=== PATIENT | female | born 1990 | race Caucasian/White ===

== ENCOUNTER 2018-09-09 19:00 | Inpatient (IN) | payer OTHER ==
[2018-09-09 19:30] VITALS: BMI 26.4
[2018-09-09 19:51] LABS: BASO % 0.6 % (0-2.0); EOS % 2.6 % (0-4.5); HEMATOCRIT 38.3 % (32.4-45.2); HEMOGLOBIN 12.3 GM/dL (10.7-15.3); LYMPH % 30.1 % (8-40); MCHC 32.2 g/dl (32.0-36.0); MEAN CELL VOLUME 71.4 fl (80-96); MEAN PLT VOLUME 8.3 fl (7.5-11.1); MONO % 5.1 % (3.8-10.2); NEUT % 61.6 % (42.8-82.8); PLATELET COUNT 312 K/MM3 (134-434); RBC 5.36 M/mm3 (3.60-5.2); RDW 15.2 % (11.6-15.6); WHITE BLOOD COUNT 6.9 K/mm3 (4.0-10.0)
[2018-09-09 20:18] LABS: URINE APPEARANCE CLEAR; URINE BILIRUBIN NEGATIVE (<2.0 mg/dL); URINE COLOR STRAW; URINE GLUCOSE (UA) NEGATIVE (NEGATIVE); URINE KETONE 1+ (NEGATIVE); URINE LEUK ESTERASE 1+ (NEGATIVE); URINE NITRITE NEGATIVE (NEGATIVE); URINE PROTEIN NEGATIVE (NEGATIVE); URINE UROBILINOGEN NEGATIVE mg/dL (0.2-1.0)
[2018-09-09 20:20] LABS: EPI CELLS RARE /HPF (FEW); URINE MUCUS RARE
[2018-09-09 20:26] LABS: PROTHROMBIN TIME (PATIENT) 11.8 SEC (9.7-13.0)
[2018-09-09 20:30] LABS: ALBUMIN 4.6 g/dl (3.4-5.0); ALK PHOS 66 U/L (45-117); ANION GAP 8 MMOL/L (8-16); BILIRUBIN,TOTAL 0.2 mg/dL (0.2-1); BLOOD UREA NITROGEN 14 mg/dL (7-18); CALCIUM 9.1 mg/dL (8.5-10.1); CHLORIDE 106 mmol/L (98-107); CO2 24 mmol/L (21-32); CREATININE 0.5 mg/dL (0.55-1.3); GLUCOSE,RANDOM 82 mg/dL (74-106); POTASSIUM 4.2 mmol/L (3.5-5.1); SGOT/AST 12 U/L (15-37); SGPT/ALT 23 U/L (13-61); SODIUM 137 mmol/L (136-145); TOT PROT 8.2 g/dl (6.4-8.2)
--- NOTE | 2018-09-09 21:02 | PDOC ---
History of Present Illness - General History Source: Patient Exam Limitations: No Limitations - History of Present Illness Initial Comments: 09/09/18 21:10 Patient is a 28 year old female with a past medical history of childbirth and familial HLD who presents to the emergency department for numbness to lower extremities and ataxia. Patient reports a 15 day history of worsening numbness to feet, which over time, ascended above her knees. She reports multiple falls since the start of her symptoms. Patient believed her symptoms were a result of the flexeril she is taking secondary to her back pain. She states she was sent to the ED for further evaluation by her neurologist Dr. Alas. The patient denies chest pain, shortness of breath, headache, and dizziness. Denies fevers, chills, nausea, and vomiting. Allergies: No known allergies. Social History: No reported alcohol, cigarette, or drug use. Surgical History: None PCP: Dr. Preston Neurologist: Dr. Alas <Alicia Roy - Last Filed: 09/09/18 21:18> <Clarisa Caraballo - Last Filed: 09/09/18 21:38> - General Chief Complaint: Head/Neck problem Stated Complaint: PADMINI FEET NUMBNESS,ATAXIA Time Seen by Provider: 09/09/18 19:53 Past History <Alicia Roy - Last Filed: 09/09/18 21:18> - Past Medical History COPD: No - Suicide/Smoking/Psychosocial Hx Smoking History: Never smoked <Clarisa Caraballo - Last Filed: 09/09/18 21:38> - Past Medical History Allergies/Adverse Reactions: Allergies Allergy/AdvReac Type Severity Reaction Status Date / Time No Known Allergies Allergy Unverified 09/09/18 19:27 Review of Systems - Review of Systems Able to Perform ROS?: Yes Comments:: CONSTITUTIONAL: Absent: fever, chills, diaphoresis, generalized weakness, malaise, loss of appetite HEENT: Absent: rhinorrhea, nasal congestion, throat pain, throat swelling, difficulty swallowing, mouth swelling, ear pain, eye pain, visual Changes CARDIOVASCULAR: Absent: chest pain, syncope, palpitations, irregular heart rate, lightheadedness , peripheral edema RESPIRATORY: Absent: cough, shortness of breath, dyspnea with exertion, orthopnea, wheezing, stridor, hemoptysis GASTROINTESTINAL: Absent: abdominal pain, abdominal distension, nausea, vomiting, diarrhea, constipation, melena, hematochezia GENITOURINARY: Absent: dysuria, frequency, urgency, hesitancy, hematuria, flank pain, genital pain MUSCULOSKELETAL: (+)back pain. Absent: myalgia, arthralgia, joint swelling SKIN: Absent: rash, itching, pallor HEMATOLOGIC/IMMUNOLOGIC: Absent: easy bleeding, easy bruising, lymphadenopathy, frequent infections ENDOCRINE: Absent: unexplained weight gain, unexplained weight loss, heat intolerance, cold intolerance NEUROLOGIC: (+)ataxia. (+)unsteady gait. (+)numbness to lower extremities. Absent: headache, focal weakness or paresthesias, dizziness, seizure, mental status changes, bladder or bowel incontinence PSYCHIATRIC: Absent: anxiety, depression, suicidal or homicidal ideation, hallucinations. <Alicia Roy - Last Filed: 09/09/18 21:18> *Physical Exam - Vital Signs Last Vital Signs Temp Pulse Resp BP Pulse Ox 98.6 F 82 18 144/81 100 09/09/18 19:27 09/09/18 19:27 09/09/18 19:27 09/09/18 19:27 09/09/18 19:27 - Physical Exam Comments: wnwd 28 y/o female in no acute distress head ncat neck supple. No jvd, no bruits Heart RRR. No gallops, murmurs, or rubs. lungs clear to auscultation bilaterally abd soft,nontender. No CVA tenderness. +Lower extremities pins and needles tingling numbness on feet up to side, ascending weakness from her toes to mid thighs bilaterally. Has reflexes. Upper motor strength, totally fine, no facial droop. ext no e/c/c, MAEx4 skin warm and dry,no rashes neuro A&Ox3. +Foot drop with gait. Ataxia. <Alicia Roy - Last Filed: 09/09/18 21:18> - Vital Signs Last Vital Signs Temp Pulse Resp BP Pulse Ox 98.6 F 82 18 144/81 100 09/09/18 19:27 09/09/18 19:27 09/09/18 19:27 09/09/18 19:27 09/09/18 19:27 <Clarisa Caraballo - Last Filed: 09/09/18 21:38> ED Treatment Course - LABORATORY CBC & Chemistry Diagram: 09/09/18 19:46 09/09/18 19:46 - ADDITIONAL ORDERS Additional order review: Laboratory Results 09/09/18 09/09/18 09/09/18 20:05 19:57 19:46 PT with INR INR Sodium 137 Potassium 4.2 Chloride 106 Carbon Dioxide 24 Anion Gap 8 BUN 14 Creatinine 0.5 L Creat Clearance w eGFR > 60 Random Glucose 82 Calcium 9.1 Total Bilirubin 0.2 AST 12 L ALT 23 Alkaline Phosphatase 66 Total Protein 8.2 Albumin 4.6 Serum , Qual Negative Urine Color Straw Urine Appearance Clear Urine pH 5.0 Ur Specific [place] 1.017 Urine Protein Negative Urine Glucose (UA) Negative Urine Ketones 1+ H Urine Blood Negative Urine Nitrite Negative Urine Bilirubin Negative Urine Urobilinogen Negative Ur Leukocyte Esterase 1+ H Urine WBC (Auto) 4 Urine RBC (Auto) 1 Ur Epithelial Cells Rare Urine Mucus Rare 09/09/18 19:46 PT with INR 11.80 INR 1.00 Sodium Potassium Chloride Carbon Dioxide Anion Gap BUN Creatinine Creat Clearance w eGFR Random Glucose Calcium Total Bilirubin AST ALT Alkaline Phosphatase Total Protein Albumin Serum , Qual Urine Color Urine Appearance Urine pH Ur Specific [place] Urine Protein Urine Glucose (UA) Urine Ketones Urine Blood Urine Nitrite Urine Bilirubin Urine Urobilinogen Ur Leukocyte Esterase Urine WBC (Auto) Urine RBC (Auto) Ur Epithelial Cells Urine Mucus 09/09/18 19:46 RBC 5.36 H MCV 71.4 L MCHC 32.2 RDW 15.2 MPV 8.3 Neutrophils % 61.6 Lymphocytes % 30.1 Monocytes % 5.1 Eosinophils % 2.6 Basophils % 0.6 <Alicia Roy - Last Filed: 09/09/18 21:18> - LABORATORY CBC & Chemistry Diagram: 09/09/18 19:46 09/09/18 19:46 - ADDITIONAL ORDERS Additional order review: Laboratory Results 09/09/18 09/09/18 09/09/18 20:05 19:57 19:46 PT with INR INR Sodium 137 Potassium 4.2 Chloride 106 Carbon Dioxide 24 Anion Gap 8 BUN 14 Creatinine 0.5 L Creat Clearance w eGFR > 60 Random Glucose 82 Calcium 9.1 Total Bilirubin 0.2 AST 12 L ALT 23 Alkaline Phosphatase 66 Total Protein 8.2 Albumin 4.6 Serum , Qual Negative Urine Color Straw Urine Appearance Clear Urine pH 5.0 Ur Specific [place] 1.017 Urine Protein Negative Urine Glucose (UA) Negative Urine Ketones 1+ H Urine Blood Negative Urine Nitrite Negative Urine Bilirubin Negative Urine Urobilinogen Negative Ur Leukocyte Esterase 1+ H Urine WBC (Auto) 4 Urine RBC (Auto) 1 Ur Epithelial Cells Rare Urine Mucus Rare 09/09/18 19:46 PT with INR 11.80 INR 1.00 Sodium Potassium Chloride Carbon Dioxide Anion Gap BUN Creatinine Creat Clearance w eGFR Random Glucose Calcium Total Bilirubin AST ALT Alkaline Phosphatase Total Protein Albumin Serum , Qual Urine Color Urine Appearance Urine pH Ur Specific [place] Urine Protein Urine Glucose (UA) Urine Ketones Urine Blood Urine Nitrite Urine Bilirubin Urine Urobilinogen Ur Leukocyte Esterase Urine WBC (Auto) Urine RBC (Auto) Ur Epithelial Cells Urine Mucus 09/09/18 19:46 RBC 5.36 H MCV 71.4 L MCHC 32.2 RDW 15.2 MPV 8.3 Neutrophils % 61.6 Lymphocytes % 30.1 Monocytes % 5.1 Eosinophils % 2.6 Basophils % 0.6 <Clarisa Caraballo - Last Filed: 09/09/18 21:38> Medical Decision Making - Medical Decision Making 09/09/18 21:02 28-year-old female was referred to the emergency department for admission by her neurologist,Dr ALAS . Patient has had 15 days of increasing lower extremity weakness, pins and needle sensation that now reaches from her toes to her mid thigh. She denies any shortness breath. She noted over the past 10 days she's had problems falling and she went to [facility] yesterday and had a CAT scan of the head and then it was followed by an MRI of the brain and lumbar spine that was reported to be negative. She was referred to the neurologist and saw Dr Alas today who brought her to the ER. On exam, it was shown that she has decreased touch and proprioception to her legs from the mid thigh extending to her toes. She has a peripheral flaccid sensory ataxia. She does have bilateral ankle jerks. She is being admitted for further care for ascending peripheral neuropathy. Currently she is resistant to lumbar puncture but DR Alas said he will address this again tomorrow and discuss further treatment options with her 09/09/18 21:30 09/09/18 21:36 <Clarisa Caraballo - Last Filed: 09/09/18 21:38> *DC/Admit/Observation/Transfer - Attestations Scribe Attestion: Documentation prepared by Alicia Roy, acting as medical doctor nuclear medicine for Calrisa Caraballo MD. <Alicia Roy - Last Filed: 09/09/18 21:18> - Discharge Dispostion Decision to Admit order: Yes <Clarisa Caraballo - Last Filed: 09/09/18 21:38> Diagnosis at time of Disposition: Guillain Sherman syndrome - Discharge Dispostion Condition at time of disposition: Good - Referrals Referrals: Sen Preston MD [Primary Care Provider] - - Patient Instructions - Post Discharge Activity
--- NOTE | 2018-09-09 21:47 | HP ---
CHIEF COMPLAINT: Lower Extremity Weakness, Frequent Falls PCP: Dr. Preston Neurologist: Dr. Alas HISTORY OF PRESENT ILLNESS: This is a 28 y/o young woman with no past medical history except Childbirth. Who presents to the ED with worsened lower extremity weakness, unsteady gait and multiple falls x 2 weeks ago worse today sent in by her neurologist for admission. Patient reports taking 3 flexeril tabs at one time for her lumbar pain, the next morning she noted having numbness and tingling to her feet and fell in her bathroom, because her legs felt weak and she could not hold herself up. She reports having frequent falls, using hunt to help her gait. Patient report being seen at [facility] having MRI's of her head and lumbar then doing a f/u with Dr. Alas. Patient denies numbness to her upper body or face. denies facial droop, slurred speech, dizziness, blurred vision. ER course was notable for: (1) (2) (3) Recent Travel: None PAST MEDICAL HISTORY: See HPI PAST SURGICAL HISTORY: See HPI Social History: Smoking: Never Alcohol: None Drugs: None Independent, employed as [employer] Family History: Allergies No Known Allergies Allergy (Unverified 09/09/18 19:27) HOME MEDICATIONS: REVIEW OF SYSTEMS CONSTITUTIONAL: Absent: fever, chills, diaphoresis, generalized weakness, malaise, loss of appetite, weight change HEENT: Absent: rhinorrhea, nasal congestion, throat pain, throat swelling, difficulty swallowing, mouth swelling, ear pain, eye pain, visual changes CARDIOVASCULAR: Absent: chest pain, syncope, palpitations, irregular heart rate, lightheadedness , peripheral edema RESPIRATORY: Absent: cough, shortness of breath, dyspnea with exertion, orthopnea, wheezing, stridor, hemoptysis GASTROINTESTINAL: Absent: abdominal pain, abdominal distension, nausea, vomiting, diarrhea, constipation, melena, hematochezia GENITOURINARY: Absent: dysuria, frequency, urgency, hesitancy, hematuria, flank pain, genital pain MUSCULOSKELETAL: Absent: myalgia, arthralgia, joint swelling, back pain, neck pain SKIN: Absent: rash, itching, pallor HEMATOLOGIC/IMMUNOLOGIC: Absent: easy bleeding, easy bruising, lymphadenopathy, frequent infections ENDOCRINE: Absent: unexplained weight gain, unexplained weight loss, heat intolerance, cold intolerance NEUROLOGIC: lower extremity weakness, unsteady gait Absent: headache, focal weakness or paresthesias, dizziness, seizure, mental status changes, bladder or bowel incontinence PSYCHIATRIC: Absent: anxiety, depression, suicidal or homicidal ideation, hallucinations. PHYSICAL EXAMINATION Vital Signs - 24 hr 09/09/18 19:27 Temperature 98.6 F Pulse Rate 82 Respiratory 18 Rate Blood Pressure 144/81 O2 Sat by Pulse 100 Oximetry (%) GENERAL: Awake, alert, and fully oriented, in no acute distress. HEAD: Normal with no signs of trauma. EYES: Pupils equal, round and reactive to light, extraocular movements intact, sclera anicteric, conjunctiva clear. No lid lag. EARS, NOSE, THROAT: Ears normal, nares patent, oropharynx clear without exudates. Moist mucous membranes. NECK: Normal range of motion, supple without lymphadenopathy, JVD, or masses. LUNGS: Breath sounds equal, clear to auscultation bilaterally. No wheezes, and no crackles. No accessory muscle use. HEART: Regular rate and rhythm, normal S1 and S2 without murmur, rub or gallop. ABDOMEN: Soft, nontender, not distended, normoactive bowel sounds, no guarding, no rebound, no masses. No hepatomegaly or splenomegaly. MUSCULOSKELETAL: Normal range of motion at all joints. No bony deformities or tenderness. No CVA tenderness. UPPER EXTREMITIES: 2+ pulses, warm, well-perfused. No cyanosis. No clubbing. No peripheral edema. LOWER EXTREMITIES: 2+ pulses, warm, well-perfused. No calf tenderness. No peripheral edema. NEUROLOGICAL: Cranial nerves II-XII intact. Normal speech. Ataxic gait PSYCHIATRIC: Cooperative. Good eye contact. Appropriate mood and affect. SKIN: Warm, dry, normal turgor, no rashes or lesions noted, normal capillary refill. Laboratory Results - last 24 hr 09/09/18 09/09/18 09/09/18 19:46 19:46 19:46 WBC 6.9 RBC 5.36 H Hgb 12.3 Hct 38.3 MCV 71.4 L MCH 23.0 L MCHC 32.2 RDW 15.2 Plt Count 312 MPV 8.3 Absolute Neuts (auto) 4.3 Neutrophils % 61.6 Lymphocytes % 30.1 Monocytes % 5.1 Eosinophils % 2.6 Basophils % 0.6 Nucleated RBC % 0 PT with INR 11.80 INR 1.00 Sodium 137 Potassium 4.2 Chloride 106 Carbon Dioxide 24 Anion Gap 8 BUN 14 Creatinine 0.5 L Creat Clearance w eGFR > 60 Random Glucose 82 Calcium 9.1 Total Bilirubin 0.2 AST 12 L ALT 23 Alkaline Phosphatase 66 Total Protein 8.2 Albumin 4.6 Serum , Qual Urine Color Urine Appearance Urine pH Ur Specific [place] Urine Protein Urine Glucose (UA) Urine Ketones Urine Blood Urine Nitrite Urine Bilirubin Urine Urobilinogen Ur Leukocyte Esterase Urine WBC (Auto) Urine RBC (Auto) Ur Epithelial Cells Urine Mucus 09/09/18 09/09/18 19:57 20:05 WBC RBC Hgb Hct MCV MCH MCHC RDW Plt Count MPV Absolute Neuts (auto) Neutrophils % Lymphocytes % Monocytes % Eosinophils % Basophils % Nucleated RBC % PT with INR INR Sodium Potassium Chloride Carbon Dioxide Anion Gap BUN Creatinine Creat Clearance w eGFR Random Glucose Calcium Total Bilirubin AST ALT Alkaline Phosphatase Total Protein Albumin Serum , Qual Negative Urine Color Straw Urine Appearance Clear Urine pH 5.0 Ur Specific [place] 1.017 Urine Protein Negative Urine Glucose (UA) Negative Urine Ketones 1+ H Urine Blood Negative Urine Nitrite Negative Urine Bilirubin Negative Urine Urobilinogen Negative Ur Leukocyte Esterase 1+ H Urine WBC (Auto) 4 Urine RBC (Auto) 1 Ur Epithelial Cells Rare Urine Mucus Rare ASSESSMENT/PLAN: Problem List - Problem (1) Guillain Sherman syndrome Code(s): G61.0 - GUILLAIN-BARRE SYNDROME (2) Lower extremity weakness Code(s): R29.898 - OTH SYMPTOMS AND SIGNS INVOLVING THE MUSCULOSKELETAL SYSTEM (3) Ataxia of both legs Code(s): R27.0 - ATAXIA, UNSPECIFIED (4) Back pain Code(s): M54.9 - DORSALGIA, UNSPECIFIED (5) DVT prophylaxis Code(s): [id number] - Visit type - Emergency Visit Emergency Visit: Yes ED Registration Date: 09/09/18 Care time: The patient presented to the Emergency Department on the above date and was hospitalized for further evaluation of their emergent condition. - New Patient This patient is new to me today: Yes Date on this admission: 09/09/18 - Critical Care Critical Care patient: No
[2018-09-10 05:17] LABS: BASO % 0.6 % (0-2.0); EOS % 3.2 % (0-4.5); HEMATOCRIT 36.4 % (32.4-45.2); HEMOGLOBIN 11.4 GM/dL (10.7-15.3); LYMPH % 34.6 % (8-40); MCH 22.6 pg (25.7-33.7); MCHC 31.4 g/dl (32.0-36.0); MEAN CELL VOLUME 71.9 fl (80-96); MEAN PLT VOLUME 8.3 fl (7.5-11.1); MONO % 6.5 % (3.8-10.2); NEUT % 55.1 % (42.8-82.8); PLATELET COUNT 252 K/MM3 (134-434); RBC 5.06 M/mm3 (3.60-5.2)
[2018-09-10 05:32] LABS: ANION GAP 6 MMOL/L (8-16); BLOOD UREA NITROGEN 14 mg/dL (7-18); CALCIUM 8.7 mg/dL (8.5-10.1); CHLORIDE 109 mmol/L (98-107); CO2 25 mmol/L (21-32); CREATININE 0.6 mg/dL (0.55-1.3); GLUCOSE,RANDOM 97 mg/dL (74-106); SODIUM 141 mmol/L (136-145)
[2018-09-10] MEDS: DEXTROSE 5%-0.45% SALINE 1,000 ML IV SCH ×2 (06:20→21:32)
--- NOTE | 2018-09-10 08:02 | PN ---
Progress Note, Physician Chief Complaint: SCHEDULED FOR LUMBAR TAP TO EVALUATE FOR GULLAN BURE VERSUS OTHER TYPES OF ATAXIA EVENTS AND NOTES REVIEWED - Current Medication List Current Medications: Active Medications Dextrose/Sodium Chloride (D5-1/2ns -) 1,000 mls @ 75 mls/hr IV ASDIR RUBY Last Admin: 09/10/18 06:20 Dose: 75 mls/hr - Objective Vital Signs: Vital Signs Temperature 98.1 F 09/10/18 07:41 Pulse Rate 80 09/10/18 07:41 Respiratory Rate 18 09/10/18 07:41 Blood Pressure 127/71 09/10/18 07:41 O2 Sat by Pulse Oximetry (%) 99 09/10/18 07:41 Constitutional: Yes: Mild Distress Eyes: Yes: WNL HENT: Yes: WNL Neck: Yes: WNL Cardiovascular: Yes: WNL Respiratory: Yes: WNL Gastrointestinal: Yes: WNL Genitourinary: Yes: WNL Musculoskeletal: Yes: Muscle Weakness Extremities: Yes: WNL Edema: No Peripheral Pulses WNL: Yes Integumentary: Yes: WNL Wound/Incision: Yes: Clean/Dry Neurological: Yes: Ataxia, Unsteady Gait, Weakness ...Motor Strength: LLE, RLE Psychiatric: Yes: WNL Labs: CBC, BMP 09/10/18 05:00 09/10/18 05:00 INR, PTT INR 1.00 (0.83-1.09) 09/09/18 19:46 Problem List - Problems (1) Ataxia of both legs Code(s): R27.0 - ATAXIA, UNSPECIFIED (2) Back pain Code(s): M54.9 - DORSALGIA, UNSPECIFIED (3) DVT prophylaxis Code(s): GKD1607 - (4) Guillain Sherman syndrome Code(s): G61.0 - GUILLAIN-BARRE SYNDROME (5) Lower extremity weakness Code(s): R29.898 - OTH SYMPTOMS AND SIGNS INVOLVING THE MUSCULOSKELETAL SYSTEM Assessment/Plan CSF PROTEIN HIGH WILL IVIG FOR ATAXIA TREATMENT DVT PROPHYLAXIS OOB TO CHAIR NEUROLOGY AND PHYSICAL THERAPY FOLLOW UP DR EMMANUEL PHYSIATRY
--- NOTE | 2018-09-10 11:16 | EKG ---
Test Reason : Blood Pressure : / mmHG Vent. Rate : 076 BPM Atrial Rate : 076 BPM P-R Int : 184 ms QRS Dur : 090 ms QT Int : 380 ms P-R-T Axes : 022 018 027 degrees QTc Int : 427 ms NORMAL SINUS RHYTHM NORMAL ECG NO PREVIOUS ECGS AVAILABLE Confirmed by MANUEL BAPTISTE, ROSENDA ([id number]) on 09/10/2018 11:15:57 AM Referred By: Confirmed By:ROSENDA JACKSON MD
[2018-09-10] MEDS ORDERED: KETOROLAC TROMETHAMINE 30 MG/1 ML VIAL IVPUSH ONE ×2 (14:15)
--- NOTE | 2018-09-10 14:40 | CON.NEURO ---
Consult Consult Specialty:: NEUROLOGY-HAILEY BAPTISTE - History of Present Illness History of Present Illness: 09/09/2018 -MY office note from from yesterday Past Medical History none Surgical History none Allergies No Known Allergies Current Medications Social History - Alcohol: occasionally - Marital status: single; - Tobacco History: None Family History no known Ms. Sang Macario Performing Provider: Cherry Alas MD : 1990 Age: 28 Year(s) Sex: Female Referring Provider: Provider: Dear Dr. Preston, I had the pleasure of seeing Sang Macario on 09/09/2018. Please review my examination, findings and plan as below and feel free to call me if there are any questions. History of Present Illness 28 yo young lady, states 2 weeks ago began having back pain, non-radiating, aching. Day after developed numbness on feetthat has ascended to both knees, + occasional bilat LE paresthesias. She also reports ataxia-sensation of imbalance and "walking as if in space". Denies recent URI. Seen at [facility] today-MRI brain/L spine without abn. there. Neurological Exam Mental Status: Mood is appropriate. Immediate recall is intact. Short term memory is intact. 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 There is no evidence of expressive or receptive aphasia. Repetition and Naming are intact. Follows three steps and Spelling reversal and serial 7`s are within normal limits. Mental status examination is performed in accordance with the standized Folstein Mini Status Examination. Cranial Nerves: IX, X - Voice normal, palate elevates symmetrically, gag intact ; XI - SCM / trapezii 5/ 5; I - Not Tested; II, III - PERRLA, VFF by confrontation, optic discs sharp; XII _ Tongue protrudes midline, no atrophy or fasciculation. III, IV,V -EOMI w /o nystagmus, no ptosis; V - Sensation intact to LT, Masseters strong symmetrically; VII - Face asymmetric with?? slight weakness of right lower face VIII - Hearing grossly intact; Motor: 5/5 proximally and distally in the upper and lower extremities. Normal tone. No cogwheeling. No atrophy or fasciculations. ROM: good range of motion in flexion, extension of cervical, thoracic and lumbar spine. Other: Spurling (- ), Tinel wrist and elbow (-). Straight Leg test (-). Chip (-). Sensory: LT, PP- diminished both feet+ mild dysesthesias in this distribution, temperature, vibration and joint position-impaired. No evidence of extinction. No sensory level. Reflexes: 2+ throughout including in BI, TR, BR, Patellar, Achilles, Plantars downgoing. Negative Soares`s Coordination & Gait: Normal finger to nose, heel to ly. Rapid alternating movements intact. Pull test and Romberg negative. Gait: somewhat high steppage, unsteady+Rombergs. 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 CSF to be sent for protein, cell count. IVIG may be required if dx. confirmed. Refusing spinal tap now, will arrange under fluoroscopy tomorrow. Exam with ataxia of sensory type?? slight right peripheral facial, LE sensory deficit, she has not lost her ankle jerks. 09/10/18 F/U Today patient reports paresthesias in right foot, numbness as she did yesterday in both feet up to knees and gait difficulty. O/E: 5/5 strength, diminished touch sensation in both legs, patchy up to knees, intact position sense.Gait: somewhat high steppage, unsteady+Rombergs. Ankle jerks-right is 2+, left is 1+(yesterday was 2+) Plan: Await CSF studies sent- if protein is elevated will place on IVIG(IgA level requested) Chad Alas MD - Past Medical History ...LMP: 09/02/18 ...: No - Alcohol/Substance Use Hx Alcohol Use: No - Smoking History Smoking history: Never smoked Home Medications - Allergies Allergies/Adverse Reactions: Allergies Allergy/AdvReac Type Severity Reaction Status Date / Time No Known Allergies Allergy Unverified 09/09/18 19:27 - Home Medications Home Medications: Ambulatory Orders NK [No Known Home Medication] 09/10/18 Physical Exam-Neuro Vital Signs: Vital Signs Temperature 98.1 F 09/10/18 07:41 Pulse Rate 80 09/10/18 07:41 Respiratory Rate 18 09/10/18 07:41 Blood Pressure 127/71 09/10/18 07:41 O2 Sat by Pulse Oximetry (%) 99 09/10/18 07:41 Labs: CBC, BMP 09/10/18 05:00 09/10/18 05:00 INR, PTT INR 1.00 (0.83-1.09) 09/09/18 19:46
[2018-09-10 15:51] LABS: BODY FLUID GLUCOSE CSF 64 mg/dL (40-70)
[2018-09-10 16:12] LABS: CSF APPEARANCE CLEAR; CSF COLOR COLORLESS; CSF WBC 7
[2018-09-11 08:35] LABS: BASO % 0.5 % (0-2.0); EOS % 3.8 % (0-4.5); HEMATOCRIT 35.7 % (32.4-45.2); LYMPH % 38.2 % (8-40); MCH 22.1 pg (25.7-33.7); MCHC 30.8 g/dl (32.0-36.0); MEAN CELL VOLUME 71.7 fl (80-96); MEAN PLT VOLUME 8.5 fl (7.5-11.1); MONO % 7.6 % (3.8-10.2); NEUT % 49.9 % (42.8-82.8); PLATELET COUNT 245 K/MM3 (134-434); RBC 4.98 M/mm3 (3.60-5.2); RDW 15.6 % (11.6-15.6); WHITE BLOOD COUNT 4.1 K/mm3 (4.0-10.0)
[2018-09-11 09:29] LABS: ALBUMIN 3.4 g/dl (3.4-5.0); ALK PHOS 51 U/L (45-117); ANION GAP 7 MMOL/L (8-16); BILIRUBIN,TOTAL 0.3 mg/dL (0.2-1); BLOOD UREA NITROGEN 9 mg/dL (7-18); CALCIUM 8.4 mg/dL (8.5-10.1); CHLORIDE 108 mmol/L (98-107); CO2 26 mmol/L (21-32); CREATININE 0.5 mg/dL (0.55-1.3); GLUCOSE,RANDOM 101 mg/dL (74-106); POTASSIUM 4.3 mmol/L (3.5-5.1); SGOT/AST 10 U/L (15-37); SGPT/ALT 18 U/L (13-61); SODIUM 141 mmol/L (136-145); TOT PROT 6.4 g/dl (6.4-8.2)
--- NOTE | 2018-09-11 10:08 | PN ---
Progress Note, Physician Chief Complaint: TRANSFERRING TO ICU FOR IMMUNOGLOBULIN THERAPY AWAKE ALERT STILL WITH ASCENDING LEG WEAKNESS - Current Medication List Current Medications: Active Medications Acetaminophen (Tylenol -) 650 mg PO Q6H PRN PRN Reason: PAIN OR FEVER Dextrose/Sodium Chloride (D5-1/2ns -) 1,000 mls @ 75 mls/hr IV ASDIR RUBY Last Admin: 09/10/18 21:32 Dose: 75 mls/hr - Objective Vital Signs: Vital Signs Temperature 97.9 F 09/11/18 06:49 Pulse Rate 82 09/11/18 06:49 Respiratory Rate 20 09/11/18 06:49 Blood Pressure 120/64 09/11/18 06:49 O2 Sat by Pulse Oximetry (%) 99 09/10/18 07:41 Constitutional: Yes: Mild Distress Eyes: Yes: WNL HENT: Yes: WNL Neck: Yes: WNL Cardiovascular: Yes: WNL Respiratory: Yes: WNL Gastrointestinal: Yes: WNL Musculoskeletal: Yes: Muscle Weakness Extremities: Yes: Other Edema: No Peripheral Pulses WNL: Yes Integumentary: Yes: WNL Wound/Incision: Yes: Clean/Dry Neurological: Yes: Loss of Sensation, Numbness, Weakness, Other ...Motor Strength: LLE, RLE Psychiatric: Yes: WNL Labs: CBC, BMP 09/11/18 08:15 09/11/18 08:15 INR, PTT INR 1.00 (0.83-1.09) 09/09/18 19:46 Problem List - Problems (1) Ataxia of both legs Code(s): R27.0 - ATAXIA, UNSPECIFIED (2) Back pain Code(s): M54.9 - DORSALGIA, UNSPECIFIED (3) DVT prophylaxis Code(s): [id number] - (4) Guillain Sherman syndrome Code(s): G61.0 - GUILLAIN-BARRE SYNDROME (5) Lower extremity weakness Code(s): R29.898 - OTH SYMPTOMS AND SIGNS INVOLVING THE MUSCULOSKELETAL SYSTEM Assessment/Plan CSF PROTEIN HIGH WILLSTART IVIG FOR ATAXIA TREATMENT DVT PROPHYLAXIS OOB TO CHAIR NEUROLOGY AND PHYSICAL THERAPY FOLLOW UP DR EMMANUEL PHYSIATRY CONSULT APPRECIATED SNF
--- NOTE | 2018-09-11 13:05 | CONS ---
DATE OF CONSULTATION: 09/11/2018 REFERRING PHYSICIAN: Sen Preston MD HISTORY OF PRESENT ILLNESS: The patient is a 28-year-old woman with a past medical history of chronic, intermittent back pain treated with cyclobenzaprine in the past who presented with numbness in the right more than left upper limb, difficulty with balance, gait, and weakness. The patient had taken some cyclobenzaprine the night before, developed weakness, unsteady gait, and multiple falls. Was seen by Neurology and referred for lumbar puncture as well as possible IVIG. The patient did undergo lumbar puncture, which showed only 7 WBCs, 0 RBCs, elevated total protein at 335, and normal glucose 64. The patient, otherwise, had blood work, which demonstrated normal WBCs 6.9, hemoglobin 12.3, platelet count 312. Repeat done this morning was stable, WBC 4.1, hemoglobin 11, platelet count 245. Chemistry done today was stable with slight elevated chloride at 108, normal BUN 9, creatinine 0.5, TSH normal 2.11, albumin normal on admission 4.6. The patient was seen by physical therapy and states she was able to ambulate. There were no notations available yet from the therapist. The patient notes slight improvement in tingling but persistent loss of balance. No numbness or tingling in the upper extremities. No bowel or bladder incontinence. No blurry vision or double vision. PAST MEDICAL HISTORY: She states she has been seen in the emergency room multiple times for a back condition and has been treated with cyclobenzaprine but no formal physical therapy or treatment. Otherwise, no past medical history. SOCIAL HISTORY: She lives in an apartment with 20 steps to enter. Premorbidly completely independent. Current function, again, unsteady possibly requiring assist. REVIEW OF SYSTEMS: No headache, no lightheadedness or dizziness. No blurry vision, double vision, change in vision. No nausea, vomiting, difficulty swallowing, difficulty chewing. No chest pain, shortness of breath, dyspnea on exertion, cough, or abdominal discomfort. No bowel or bladder incontinence, retention. No diarrhea. She has, again, numbness and tingling in the right more than left lower extremity with weakness in both lower extremities, some degree of back pain in the midline but no radicular complaints. No numbness, tingling, or weakness in the upper extremities. Some loss of balance. No weight loss or weight gain. No fever or chills. PHYSICAL EXAMINATION: General: The patient is a well-developed woman seen lying down in bed in no acute distress. She is awake and alert. Seems to have good insight into her medical conditions. She is responsive to all directions. HEENT: She is normocephalic and atraumatic. Extraocular muscles appear intact. She has no obvious facial weakness. Neck: Supple. Extremities: Without any pitting edema or calf tenderness. Skin: Without any rash or breakdown. Neuromuscular: She is awake, alert, oriented x3. Cranial nerves 2-12 are grossly intact. Good motor power throughout the upper extremities with depressed but symmetric reflexes. Normal sensation to pinprick and good finger to nose. In the lower extremities she has dorsiflexor weakness bilaterally only 3/5 with better plantar flexion at least 4/5. Good knee flexion and extension. Good hip girdle strength. Normal sensation to pinprick but absent reflexes in the lower extremities. Unsteady balance standing. OVERALL IMPRESSION: 1. Deficits in mobility, activities of daily living, multifactorial. 2. Numbness and tingling in the right lower extremity with weakness. 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 3. Chronic back pain. 4. Bilateral foot drop, partial. PLAN/SUGGESTION: 1. Physical therapy to continue. 2. Neurologic follow up. 3. Agree with IVIG. 4. Consider AFOs as an outpatient if weakness persists. 5. May require inpatient rehabilitation prior to discharge to home depending on her response to therapy. She does have 20 stairs at home. 6. DVT prophylaxis until more mobile. Would consider subcutaneous heparin. 7. Bowel regimen. Monitor for constipation. 8. Skin precautions. We will follow. Thank you for this referral. EMMA EMMANUEL M.D. DERRICK/[id number]
[2018-09-11] MEDS: DEXTROSE 5%-0.45% SALINE 1,000 ML IV SCH (13:48)
--- NOTE | 2018-09-11 15:40 | PN ---
Progress Note, Physician Chief Complaint: tingling in legs History of Present Illness: about a week of back pain, more recently tingling in legs, admitted from community after being seen in [facility] ER. Initially minimal motor involvement, some facial weakness, though patient has noticed left leg getting week. Admitted with DDX of AIDP vs. Transverse myelitis. LP done under fluoro yesterday yielded cyto-albumin dissociation with protein in the 300 range and WBC of 7. - Current Medication List Current Medications: Active Medications Acetaminophen (Tylenol -) 650 mg PO Q6H PRN PRN Reason: PAIN OR FEVER Dextrose/Sodium Chloride (D5-1/2ns -) 1,000 mls @ 75 mls/hr IV ASDIR RUBY Last Admin: 09/11/18 13:48 Dose: 75 mls/hr - Objective Vital Signs: Vital Signs Temperature 98.3 F 09/11/18 14:51 Pulse Rate 91 H 09/11/18 14:51 Respiratory Rate 18 09/11/18 14:51 Blood Pressure 124/69 09/11/18 14:51 O2 Sat by Pulse Oximetry (%) 99 09/10/18 07:41 Neurological: Yes: Alert, Oriented, Cran Nerves II-XII Intact (except slight left facial weakness), Numbness (legs below knees), Tingling ...Motor Strength: LUE (5/5), LLE (4/5 dorsiflexion, plantarflexion, quads, hamstrings, iliopsoas), RUE (5/5), RLE (5-/5 dorsiflexion, 5/5 plantarflexion, 5 -/5 hamstring, 5-/5 iliopsoas, 5-/5 quads) Additional Findings/Remarks: DTR's 2/4 throughout except for absent left knee jerk. Labs: CBC, BMP 09/11/18 08:15 09/11/18 08:15 INR, PTT INR 1.00 (0.83-1.09) 09/09/18 19:46 Problem List - Problems (1) Ataxia of both legs Code(s): R27.0 - ATAXIA, UNSPECIFIED (2) Back pain Code(s): M54.9 - DORSALGIA, UNSPECIFIED (3) DVT prophylaxis Code(s): KCG5061 - (4) Guillain Sherman syndrome Code(s): G61.0 - GUILLAIN-BARRE SYNDROME (5) Lower extremity weakness Code(s): R29.898 - OTH SYMPTOMS AND SIGNS INVOLVING THE MUSCULOSKELETAL SYSTEM Assessment/Plan This is now more clearly Guaillan Thorofare syndrome, still early but progressing. Will get respiratory involved and request transfer to ICU for closer monitoring , though she is still for the most part strong. Start IVIG.
[2018-09-11] MEDS ORDERED: IMMUNE GLOB GAM CAPRYLATE IVPB SCH (15:45)
--- NOTE | 2018-09-11 17:41 | CONSULT ---
Consultation: REQUESTING PROVIDER: Dr. Flores CONSULT REQUEST: We have been asked to medically evaluate this patient for Guillain-Aguilar syndrome. HISTORY OF PRESENT ILLNESS: Patient is a 28 year old female with no past medical history presenting with worsening bilateral leg weakness, numbness and tingling since 2 weeks ago. Patient reports intermittent low back pain since 1 year ago for which she takes Naproxen as needed. Two weeks ago, she had severe 10/10 low back pain, for which she took 3 tablets of Flexeril at the same time. The next day, she reported weakness, numbness and tingling of both legs. Symptoms started worsening, and patient reports having frequent falls and needing to hold on to something to help herself up. When she's able to stand, her legs start to shake after a few minutes, and she eventually have to sit back down. Patient also reports numbness and tingling sensation of both legs, from mid-thigh down to the feet, R leg worse than the left, feet worse than the legs. Patient was reportedly seen at [place] ED few days ago, where MRI of brain and lumbar spine done showed no abnormalities. With worsening symptoms, patient came to the ED. She denies any history of diarrhea or respiratory tract infection. Patient denies weakness or numbness of upper extremities, facial droop, blurred vision, headache or dizziness. She denies any SOB, chest pain, palpitations, abdominal pain, urinary symptoms. As per neuro, LP done yesterday revealed cyto-albumin dissociation with protein at 300 range and WBC of 7. 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 Transferred to ICU for closer monitoring. REVIEW OF SYSTEMS: CONSTITUTIONAL: Absent: fever, chills, diaphoresis, generalized weakness, malaise, loss of appetite, weight change HEENT: Absent: rhinorrhea, nasal congestion, throat pain, throat swelling, difficulty swallowing, mouth swelling, ear pain, eye pain, visual changes CARDIOVASCULAR: Absent: chest pain, syncope, palpitations, irregular heart rate, lightheadedness , peripheral edema RESPIRATORY: Absent: cough, shortness of breath, dyspnea with exertion, orthopnea, wheezing, stridor, hemoptysis GASTROINTESTINAL: Absent: abdominal pain, abdominal distension, nausea, vomiting, diarrhea, constipation, melena, hematochezia GENITOURINARY: Absent: dysuria, frequency, urgency, hesitancy, hematuria, flank pain, genital pain MUSCULOSKELETAL: Absent: myalgia, arthralgia, joint swelling, back pain, neck pain SKIN: Absent: rash, itching, pallor HEMATOLOGIC/IMMUNOLOGIC: Absent: easy bleeding, easy bruising, lymphadenopathy, frequent infections ENDOCRINE: Absent: unexplained weight gain, unexplained weight loss, heat intolerance, cold intolerance NEUROLOGIC: unsteady gait; bilateral leg weakness, numbness and tingling Absent: headache, dizziness, seizure, mental status changes, bladder or bowel incontinence PSYCHIATRIC: Absent: anxiety, depression, suicidal or homicidal ideation, hallucinations. PHYSICAL EXAMINATION Vital Signs - 24 hr 09/10/18 09/11/18 09/11/18 22:00 06:49 13:32 Temperature 98 F 97.9 F 98.4 F Pulse Rate 98 H 82 85 Respiratory 20 20 17 Rate Blood Pressure 129/69 120/64 131/79 09/11/18 09/11/18 14:51 17:08 Temperature 98.3 F 98.6 F Pulse Rate 91 H 96 H Respiratory 18 20 Rate Blood Pressure 124/69 133/70 GENERAL: Awake, alert, and fully oriented, in no acute distress. HEAD: Normal with no signs of trauma. EYES: PERRLA, EOMI, sclera anicteric, conjunctiva clear. EARS, NOSE, THROAT: Ears normal, nares patent, oropharynx clear without exudates. Moist mucous membranes. NECK: Normal range of motion, supple without lymphadenopathy, JVD, or masses. LUNGS: Breath sounds equal, clear to auscultation bilaterally. No wheezes, and no crackles. No accessory muscle use. HEART: Regular rate and rhythm, normal S1 and S2 without murmur, rub or gallop. ABDOMEN: Soft, nontender, not distended, normoactive bowel sounds. MUSCULOSKELETAL: Normal range of motion at all joints. No bony deformities or tenderness. UPPER EXTREMITIES: 2+ pulses, warm, well-perfused. No cyanosis. No clubbing. Cap refill <2 seconds. No peripheral edema. LOWER EXTREMITIES: 2+ pulses, warm, well-perfused. No calf tenderness. No peripheral edema. NEUROLOGICAL: Cranial nerves II-XII intact. Normal speech. Gait not observed. B /L LE: sensation diminished R>L; RLE: motor 5/5 on hip/knee flexion/extension, dorsiflexion and plantar flexion; LLE: motor 5/5 on hip/knee flexion/extension and 4/5 on dorsiflexion and plantar flexion. DTRs +2 PSYCHIATRIC: Cooperative. Good eye contact. Appropriate mood and affect. SKIN: Warm, dry, normal turgor, no rashes or lesions noted. Laboratory Results - last 24 hr 09/11/18 09/11/18 08:15 08:15 WBC 4.1 RBC 4.98 Hgb 11.0 Hct 35.7 MCV 71.7 L MCH 22.1 L MCHC 30.8 L RDW 15.6 Plt Count 245 MPV 8.5 Absolute Neuts (auto) 2.1 Neutrophils % 49.9 Lymphocytes % 38.2 Monocytes % 7.6 Eosinophils % 3.8 Basophils % 0.5 Nucleated RBC % 0 Sodium 141 Potassium 4.3 Chloride 108 H Carbon Dioxide 26 Anion Gap 7 L BUN 9 Creatinine 0.5 L Creat Clearance w eGFR > 60 Random Glucose 101 Calcium 8.4 L Total Bilirubin 0.3 AST 10 L ALT 18 Alkaline Phosphatase 51 Total Protein 6.4 Albumin 3.4 Active Medications Generic Name Dose Route Start Last Admin Trade Name Freq PRN Reason Stop Dose Admin Acetaminophen 650 mg 09/11/18 05:10 Tylenol - PO Q6H PRN PAIN OR FEVER Diphenhydramine HCl 25 mg 09/11/18 15:30 Benadryl - PO 09/15/18 15:31 Q24H [facility] Dextrose/Sodium Chloride 1,000 mls @ 75 mls/hr 09/10/18 05:45 09/11/18 13:48 D5-1/2ns - IV 75 mls/hr ASDIR RUBY Administration Immune Globulin 25 gm in 250 mls @ 38.102 mls/hr 09/11/18 15:45 Gamunex-C IVPB 09/15/18 22:19 Q24H RUBY Protocol 1 MG/KG/MIN ASSESSMENT/PLAN: Patient is a 28 year old female with no past medical history presenting with worsening bilateral leg weakness, numbness and tingling since 2 weeks ago. LP done yesterday revealed cyto-albumin dissociation with protein at 300 range and WBC of 7. 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 Transferred to ICU for closer monitoring. #Neurology 1) Ascending bilateral leg weakness, likely 2/2 Guillain-Aguilar Syndrome -LP done revealed cyto-albumin dissociation with protein at 300 range and WBC of 7 -Neurology (Dr. Alas) consulted. Recommendations appreciated. -To start IVIG treatment -For closer monitoring in the ICU -IgA immunoglobulin ordered. -H. pylori IgM, IgA, IgG Ab -Neuro checks q4h -Respiratory - FVC q4h -Physical therapy. -Pulmonology consulted. #FEN -IV D5-1/2NS @75ml/hr -electrolytes wnl, routine bmp monitoring -regular diet #Prophylaxis -SCDs, both legs -Early ambulation #Disposition -transfer to ICU for closer monitoring -full code Dispo: We will continue to follow the patient. Thank you for this consultative opportunity.
[2018-09-11] MEDS: diphenhydrAMINE HCL 25 MG CAPSULE (FP) PO SCH (18:03)
[2018-09-11] MEDS ORDERED: ACETAMINOPHEN 325 MG TABLET (FP) PO ONE (18:45)
[2018-09-11] MEDS ORDERED: methylPREDNISolone NA SUCC 125 MG/2 ML VIAL IVPB ONE ×2 (18:45)
[2018-09-12] MEDS ORDERED: methylPREDNISolone NA SUCC 125 MG/2 ML VIAL ONE (01:49)
[2018-09-12 05:54] LABS: HEMATOCRIT 38.7 % (32.4-45.2); MCH 22.3 pg (25.7-33.7); MCHC 30.9 g/dl (32.0-36.0); MEAN CELL VOLUME 72.1 fl (80-96); MEAN PLT VOLUME 8.3 fl (7.5-11.1); PLATELET COUNT 255 K/MM3 (134-434); RBC 5.36 M/mm3 (3.60-5.2); RDW 15.4 % (11.6-15.6); WHITE BLOOD COUNT 5.4 K/mm3 (4.0-10.0)
[2018-09-12 06:30] LABS: ANION GAP 8 MMOL/L (8-16); BLOOD UREA NITROGEN 9 mg/dL (7-18); CHLORIDE 106 mmol/L (98-107); CO2 23 mmol/L (21-32); CREATININE 0.6 mg/dL (0.55-1.3); GLUCOSE,RANDOM 119 mg/dL (74-106); MAGNESIUM 2.1 mg/dL (1.8-2.4); PHOSPHOROUS 2.3 mg/dL (2.5-4.9); POTASSIUM 4.3 mmol/L (3.5-5.1); SODIUM 137 mmol/L (136-145)
[2018-09-12] MEDS ORDERED: PT OWN MED DRAWER 7, Y5N ONE (07:36)
[2018-09-12] MEDS: ACETAMINOPHEN 325 MG TABLET (FP) PO PRN (08:29)
[2018-09-12] MEDS: DEXTROSE 5%-0.45% SALINE 1,000 ML IV SCH (08:30)
--- NOTE | 2018-09-12 08:40 | PN ---
Progress Note, Physician Chief Complaint: AWAKE ALERT IN ICU WEAKNESS CONTINUES IN LEGS - Current Medication List Current Medications: Active Medications Acetaminophen (Tylenol -) 650 mg PO Q6H PRN PRN Reason: PAIN OR FEVER Last Admin: 09/12/18 08:29 Dose: 650 mg Diphenhydramine HCl (Benadryl -) 25 mg PO Q24H RUBY Stop: 09/15/18 15:31 Last Admin: 09/11/18 18:03 Dose: 25 mg Dextrose/Sodium Chloride (D5-1/2ns -) 1,000 mls @ 75 mls/hr IV ASDIR RUBY Last Admin: 09/12/18 08:30 Dose: 75 mls/hr Immune Globulin (Gamunex-C) 25 gm in 250 mls @ 38.102 mls/hr IVPB Q24H RUBY; Protocol Stop: 09/16/18 04:34 - Objective Vital Signs: Vital Signs Temperature 98.4 F 09/12/18 05:21 Pulse Rate 74 09/12/18 08:24 Respiratory Rate 18 09/12/18 08:24 Blood Pressure 128/83 09/12/18 08:24 O2 Sat by Pulse Oximetry (%) 98 09/12/18 08:00 Constitutional: Yes: Mild Distress Eyes: Yes: WNL HENT: Yes: WNL Neck: Yes: WNL Cardiovascular: Yes: WNL Respiratory: Yes: WNL Gastrointestinal: Yes: WNL Genitourinary: Yes: WNL Musculoskeletal: Yes: Muscle Weakness Extremities: Yes: Other Edema: No Peripheral Pulses WNL: Yes Integumentary: Yes: WNL Wound/Incision: Yes: Clean/Dry Neurological: Yes: Weakness ...Motor Strength: LLE, RLE Psychiatric: Yes: WNL Labs: CBC, BMP 09/12/18 05:30 09/12/18 05:30 INR, PTT INR 1.00 (0.83-1.09) 09/09/18 19:46 Problem List - Problems (1) Ataxia of both legs Code(s): R27.0 - ATAXIA, UNSPECIFIED (2) Back pain Code(s): M54.9 - DORSALGIA, UNSPECIFIED (3) DVT prophylaxis Code(s): [id number] - (4) Guillain Sherman syndrome Code(s): 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
[2018-09-12] MEDS ORDERED: IBUPROFEN 800 MG/8 ML IJ IVPB PRN (09:00)
--- NOTE | 2018-09-12 11:15 | PN ---
Progress Note, Physician Chief Complaint: tingling in legs History of Present Illness: about a week of back pain, more recently tingling in legs, admitted from community after being seen in [facility] ER. Initially minimal motor involvement, some facial weakness, though patient has noticed left leg getting week. Admitted with DDX of AIDP vs. Transverse myelitis. LP done under fluoro yesterday yielded cyto-albumin dissociation with protein in the 300 range and WBC of 7. - Current Medication List Current Medications: Active Medications Acetaminophen (Tylenol -) 650 mg PO Q6H PRN PRN Reason: PAIN OR FEVER Last Admin: 09/12/18 08:29 Dose: 650 mg Diphenhydramine HCl (Benadryl -) 25 mg PO Q24H RUBY Stop: 09/15/18 15:31 Last Admin: 09/11/18 18:03 Dose: 25 mg Dextrose/Sodium Chloride (D5-1/2ns -) 1,000 mls @ 75 mls/hr IV ASDIR RUBY Last Admin: 09/12/18 08:30 Dose: 75 mls/hr Immune Globulin (Gamunex-C) 25 gm in 250 mls @ 38.102 mls/hr IVPB Q24H RUBY; Protocol Stop: 09/16/18 04:34 Ibuprofen (Caldolor Injection -) 600 mg IVPB Q8H PRN PRN Reason: FEVER Last Admin: 09/12/18 10:02 Dose: 600 mg - Objective Vital Signs: Vital Signs Temperature 98.1 F 09/12/18 10:00 Pulse Rate 74 09/12/18 10:00 Respiratory Rate 18 09/12/18 10:00 Blood Pressure 134/81 09/12/18 10:00 O2 Sat by Pulse Oximetry (%) 98 09/12/18 08:00 Constitutional: Yes: Well Nourished, No Distress, Calm Neurological: Yes: Alert, Oriented, Facial Droop (very subtle on left), Loss of Sensation (legs), Tingling (legs) ...Motor Strength: LUE (5/5), LLE (3/5 ileopsoas, 3+/5 quad, 3+/5 hamstring, 4/ 5 plantarflexion, 0/5 dorsiflexion), RUE (5/5), RLE (4/5 ileopsoas, 4/5 quad, 3+ /5 hamstring, 0/5 dorsiflexion 4+/5 plantarflexion) Additional Findings/Remarks: DTR's 1/4 at patellar's bilaterally, otherwise 2/4 throughout (including Achilles) Labs: CBC, BMP 09/12/18 05:30 09/12/18 05:30 INR, PTT INR 1.00 (0.83-1.09) 09/09/18 19:46 Problem List - Problems (1) Ataxia of both legs Code(s): R27.0 - ATAXIA, UNSPECIFIED (2) Back pain Code(s): M54.9 - DORSALGIA, UNSPECIFIED (3) DVT prophylaxis Code(s): [id number] - (4) Guillain Sherman syndrome Code(s): G61.0 - GUILLAIN-BARRE SYNDROME (5) Lower extremity weakness Code(s): R29.898 - OTH SYMPTOMS AND SIGNS INVOLVING THE MUSCULOSKELETAL SYSTEM Assessment/Plan This is now more clearly Guillan Temple syndrome, still early but progressing. Although her legs are progressively weaker, her respiratory status is stable as is her upper body strength in general. she tolerated her first dose of IVIG well and is in ICU for monitoring as risk of respiratory decline is there. Continue IVIG, 25 gms daily x 5 days, 4 more doses.
--- NOTE | 2018-09-12 12:51 | PN ---
Teaching Attending Note Name of Resident: Chayito Noonan ATTENDING PHYSICIAN STATEMENT I saw and evaluated the patient. I reviewed the resident's note and discussed the case with the resident. I agree with the resident's findings and plan as documented. SUBJECTIVE: Patient seen and examined in the ICU. Awake and alert. Received first dose of IVIG early AM. [place] some weakness and slightly unsteady when she ambulated to the bathroom. VC: 3.4 Liters (stable) since admission. No CP or SOB. Seen by Neuro this AM and exam appears stable. Intake & Output 09/09/18 09/10/18 09/11/18 09/12/18 23:59 23:59 23:59 23:59 Intake Total 1600 2565 910 Balance 1600 2565 910 Weight 140 lb 140 lb 140 lb Last Vital Signs Temp Pulse Resp BP Pulse Ox 98.1 F 76 18 132/80 98 09/12/18 10:00 09/12/18 12:06 09/12/18 12:06 09/12/18 12:06 09/12/18 09:00 Active Medications Acetaminophen (Tylenol -) 650 mg PO Q6H PRN PRN Reason: PAIN OR FEVER Last Admin: 09/12/18 08:29 Dose: 650 mg Diphenhydramine HCl (Benadryl -) 25 mg PO Q24H RUBY Stop: 09/15/18 15:31 Last Admin: 09/11/18 18:03 Dose: 25 mg Dextrose/Sodium Chloride (D5-1/2ns -) 1,000 mls @ 75 mls/hr IV ASDIR RUBY Last Admin: 09/12/18 08:30 Dose: 75 mls/hr Immune Globulin (Gamunex-C) 25 gm in 250 mls @ 38.102 mls/hr IVPB Q24H RUBY; Protocol Stop: 09/16/18 04:34 Ibuprofen (Caldolor Injection -) 600 mg IVPB Q8H PRN PRN Reason: FEVER Last Admin: 09/12/18 10:02 Dose: 600 mg GENERAL: Awake, alert, and fully oriented, in no acute distress. HEAD: Normal with no signs of trauma. EYES: sclera anicteric, conjunctiva clear. EARS, NOSE, THROAT: Ears normal, nares patent, oropharynx clear without exudates. Moist mucous membranes. NECK: Normal range of motion, supple without lymphadenopathy, JVD, or masses. LUNGS: Breath sounds equal, clear to auscultation bilaterally. No wheezes, and no crackles. No accessory muscle use. HEART: Regular rate and rhythm, normal S1 and S2 without murmur, rub or gallop. ABDOMEN: Soft, nontender, not distended, normoactive bowel sounds. MUSCULOSKELETAL: Normal range of motion at all joints. No bony deformities or tenderness. UPPER EXTREMITIES: 2+ pulses, warm, well-perfused. No cyanosis. No clubbing. Cap refill <2 seconds. No peripheral edema. LOWER EXTREMITIES: 2+ pulses, warm, well-perfused. No calf tenderness. No peripheral edema. NEUROLOGICAL: Non-focal, sensation slightly diminished R>L; Motor appears intact PSYCHIATRIC: Cooperative. Good eye contact. Appropriate mood and affect. SKIN: Warm, dry, normal turgor, no rashes or lesions noted. 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
--- NOTE | 2018-09-12 13:56 | PN ---
Physical Exam: SUBJECTIVE: Patient seen and examined at bedside. Patient reports more weakness of both legs this morning as she was walking to the bathroom. She also notes persistent numbness and tingling of both legs, R worse than the L. Denies SOB, palpitations, abdominal pain, diarrhea, urinary symptoms. OBJECTIVE: Vital Signs Period Temp Pulse Resp BP Sys/Hussein Pulse Ox Last 24 Hr 98.1 F-98.6 F 74-96 14-20 107-134/61-83 98-98 GENERAL: Awake, alert, and fully oriented, in no acute distress. HEAD: Normal with no signs of trauma. EYES: PERRLA, EOMI, sclera anicteric, conjunctiva clear. EARS, NOSE, THROAT: Ears normal, nares patent, oropharynx clear without exudates. Moist mucous membranes. NECK: Normal range of motion, supple without lymphadenopathy, JVD, or masses. LUNGS: Breath sounds equal, clear to auscultation bilaterally. No wheezes, and no crackles. No accessory muscle use. HEART: Regular rate and rhythm, normal S1 and S2 without murmur, rub or gallop. ABDOMEN: Soft, nontender, not distended, normoactive bowel sounds. MUSCULOSKELETAL: Normal range of motion at all joints. No bony deformities or tenderness. UPPER EXTREMITIES: 2+ pulses, warm, well-perfused. No cyanosis. No clubbing. Cap refill <2 seconds. No peripheral edema. LOWER EXTREMITIES: 2+ pulses, warm, well-perfused. No calf tenderness. No peripheral edema. NEUROLOGICAL: Cranial nerves II-XII intact. Normal speech. Gait not observed. B /L LE: sensation diminished R>L; RLE: motor 5/5 on hip/knee flexion/extension, 4 /5 on dorsiflexion and plantar flexion; LLE: motor 5/5 on hip/knee flexion/ extension and 4/5 on dorsiflexion and plantar flexion. DTRs +2 PSYCHIATRIC: Cooperative. Good eye contact. Appropriate mood and affect. SKIN: Warm, dry, normal turgor, no rashes or lesions noted. Laboratory Results - last 24 hr 09/12/18 09/12/18 09/12/18 05:30 05:30 05:30 WBC 5.4 RBC 5.36 H Hgb 12.0 Hct 38.7 MCV 72.1 L MCH 22.3 L MCHC 30.9 L RDW 15.4 Plt Count 255 MPV 8.3 Sodium 137 Potassium 4.3 Chloride 106 Carbon Dioxide 23 Anion Gap 8 BUN 9 Creatinine 0.6 Creat Clearance w eGFR > 60 Random Glucose 119 H Calcium 9.0 Phosphorus 2.3 L Magnesium 2.1 Crossmatch See Detail Active Medications Generic Name Dose Route Start Last Admin Trade Name Freq PRN Reason Stop Dose Admin Acetaminophen 650 mg 09/11/18 05:10 09/12/18 08:29 Tylenol - PO 650 mg Q6H PRN Administration PAIN OR FEVER Diphenhydramine HCl 25 mg 09/11/18 15:30 09/11/18 18:03 Benadryl - PO 09/15/18 15:31 25 mg Q24H RUBY Administration Dextrose/Sodium Chloride 1,000 mls @ 75 mls/hr 09/10/18 05:45 09/12/18 08:30 D5-1/2ns - IV 75 mls/hr ASDIR RUBY Administration Immune Globulin 25 gm in 250 mls @ 38.102 mls/hr 09/12/18 22:00 Gamunex-C IVPB 09/16/18 04:34 Q24H RUBY Protocol 1 MG/KG/MIN Ibuprofen 600 mg 09/12/18 09:00 09/12/18 10:02 Caldolor Injection - IVPB 600 mg Q8H PRN Administration FEVER ASSESSMENT/PLAN: Patient is a 28 year old female with no past medical history presenting with worsening bilateral leg weakness, numbness and tingling since 2 weeks ago. LP done yesterday revealed cyto-albumin dissociation with protein at 300 range and WBC of 7. 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 Transferred to ICU for closer monitoring. 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 Alas) consulted. Recommendations appreciated. -IVIG q24h started 1/5 doses -Benadryl prior to IVIG treatment -For closer monitoring in the ICU -IgA immunoglobulin ordered. -H. pylori IgM, IgA, IgG Ab -Neuro checks q4h -Respiratory - FVC q4h -Physical therapy. -Pulmonology consulted. #FEN -IV D5-1/2NS @75ml/hr -electrolytes wnl, routine bmp monitoring -regular diet #Prophylaxis -SCDs, both legs -Early ambulation #Disposition -transfer to ICU for closer monitoring -full code Visit type - Emergency Visit Emergency Visit: Yes ED Registration Date: 09/09/18 Care time: The patient presented to the Emergency Department on the above date and was hospitalized for further evaluation of their emergent condition. - New Patient This patient is new to me today: Yes Date on this admission: 09/12/18 - Critical Care Critical Care patient: Yes Total Critical Care Time (in minutes): 40 Critical Care Statement: The care of this patient involved high complexity decision making to prevent further life threatening deterioration of the patient 's condition and/or to evaluate & treat vital organ system(s) failure or risk of failure.
[2018-09-12] MEDS: POLYETHYLENE GLYCOL 3350 119 GM BTL PO SCH (17:21)
[2018-09-12] MEDS: diphenhydrAMINE HCL 25 MG CAPSULE (FP) PO SCH ×2 (17:26→21:25)
[2018-09-12] MEDS: IMMUNE GLOB GAM CAPRYLATE IVPB SCH (21:28)
[2018-09-13 06:11] LABS: HEMATOCRIT 34.8 % (32.4-45.2); HEMOGLOBIN 10.7 GM/dL (10.7-15.3); MCH 22.2 pg (25.7-33.7); MCHC 30.6 g/dl (32.0-36.0); MEAN CELL VOLUME 72.5 fl (80-96); MEAN PLT VOLUME 8.3 fl (7.5-11.1); PLATELET COUNT 237 K/MM3 (134-434); RDW 15.3 % (11.6-15.6); WHITE BLOOD COUNT 4.7 K/mm3 (4.0-10.0)
[2018-09-13 06:34] LABS: ANION GAP 7 MMOL/L (8-16); BLOOD UREA NITROGEN 10 mg/dL (7-18); CALCIUM 8.3 mg/dL (8.5-10.1); CHLORIDE 105 mmol/L (98-107); CO2 25 mmol/L (21-32); CREATININE 0.5 mg/dL (0.55-1.3); GLUCOSE,RANDOM 98 mg/dL (74-106); PHOSPHOROUS 3.5 mg/dL (2.5-4.9); SODIUM 138 mmol/L (136-145)
--- NOTE | 2018-09-13 10:02 | PN ---
Progress Note, Physician - Current Medication List Current Medications: Active Medications Acetaminophen (Tylenol -) 650 mg PO Q6H PRN PRN Reason: PAIN OR FEVER Last Admin: 09/12/18 08:29 Dose: 650 mg Diphenhydramine HCl (Benadryl -) 25 mg PO DAILY@2100 RUBY Stop: 09/15/18 21:01 Last Admin: 09/12/18 21:25 Dose: 25 mg Dextrose/Sodium Chloride (D5-1/2ns -) 1,000 mls @ 75 mls/hr IV ASDIR RUBY Last Admin: 09/12/18 08:30 Dose: 75 mls/hr Immune Globulin (Gamunex-C) 25 gm in 250 mls @ 38.102 mls/hr IVPB Q24H [facility]; Protocol Stop: 09/16/18 04:34 Last Admin: 09/12/18 21:28 Dose: 38.102 mls/hr Ibuprofen (Caldolor Injection -) 600 mg IVPB Q8H PRN PRN Reason: FEVER Last Admin: 09/12/18 10:02 Dose: 600 mg Polyethylene Glycol (Miralax (For Daily Use) -) 17 gm PO DAILY [facility] Last Admin: 09/12/18 17:21 Dose: Not Given - Objective Vital Signs: Vital Signs Temperature 98.5 F 09/13/18 06:00 Pulse Rate 74 09/13/18 08:00 Respiratory Rate 20 09/13/18 08:00 Blood Pressure 121/84 09/13/18 08:00 O2 Sat by Pulse Oximetry (%) 98 09/12/18 20:33 Cardiovascular: Yes: Regular Rate and Rhythm Respiratory: Yes: Regular, CTA Bilaterally Gastrointestinal: Yes: Normal Bowel Sounds, Soft Neurological: Yes: Alert, Oriented, Numbness, Paresthesia, Weakness Labs: CBC, BMP 09/13/18 05:30 09/13/18 05:30 INR, PTT INR 1.00 (0.83-1.09) 09/09/18 19:46 Problem List - Problems (1) Guillain Sherman syndrome Assessment/Plan: -LP done revealed cyto-albumin dissociation with protein at 300 range and WBC of 7 -Neurology (Dr. Alas) consulted. Recommendations appreciated. -IVIG q24h started --5 doses -Benadryl prior to IVIG treatment -Neuro checks q4h -Respiratory - FVC q4h -Physical therapy. 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
[2018-09-13] MEDS: POLYETHYLENE GLYCOL 3350 119 GM BTL PO SCH (10:15)
[2018-09-13] MEDS: DEXTROSE 5%-0.45% SALINE 1,000 ML IV SCH (12:52)
[2018-09-13] MEDS: ACETAMINOPHEN 325 MG TABLET (FP) PO PRN ×2 (12:53→17:53)
[2018-09-13 16:13] LABS: H.PYLORI AB IGM <9.0 units (0.0-8.9)
--- NOTE | 2018-09-13 20:19 | PN ---
Progress Note (short form) - Note Progress Note: Pulm/CC SUBJECTIVE: Patient seen an d examined in the ICU. 24Hr; relates improved sensation in LE, less tingling, walking without difficulty, s/ p IVIG Vital Signs Temp 98.2 F 09/13/18 18:00 Pulse 96 H 09/13/18 18:00 Resp 18 09/13/18 18:00 BP 125/81 09/13/18 18:00 Pulse Ox 98 09/13/18 10:00 Intake & Output 09/12/18 09/13/18 09/13/18 23:59 11:59 23:59 Intake Total 1375 2300 900 Balance 1375 2300 900 Weight 63.645 kg Intake: IV 825 1800 900 D5-1/2Ns - 1,000 ml @ 75 825 1800 900 mls/hr IV ASDIR RUBY Rx#: [id number] IVPB 150 500 Oral 400 Other: Voiding Method Toilet Toilet # Unmeasured Voids Void 1 2 4 Bowel Movement No No No Weight Measurement Method Built in [facility] Current Medications Acetaminophen (Tylenol -) 650 mg PO Q6H PRN PRN Reason: PAIN OR FEVER Last Admin: 09/13/18 17:53 Dose: 650 mg Diphenhydramine HCl (Benadryl -) 25 mg PO DAILY@2100 RUBY Stop: 09/15/18 21:01 Last Admin: 09/12/18 21:25 Dose: 25 mg Dextrose/Sodium Chloride (D5-1/2ns -) 1,000 mls @ 75 mls/hr IV ASDIR RUBY Last Admin: 09/13/18 12:52 Dose: 75 mls/hr Immune Globulin (Gamunex-C) 25 gm in 250 mls @ 38.102 mls/hr IVPB Q24H [facility]; Protocol Stop: 09/16/18 04:34 Last Admin: 09/12/18 21:28 Dose: 38.102 mls/hr Ibuprofen (Caldolor Injection -) 600 mg IVPB Q8H PRN PRN Reason: FEVER Last Admin: 09/12/18 10:02 Dose: 600 mg Polyethylene Glycol (Miralax (For Daily Use) -) 17 gm PO DAILY [facility] Last Admin: 09/13/18 10:15 Dose: Not Given GENERAL: Awake, alert, and fully oriented, in no acute distress. HEAD: Normal with no signs of trauma. EYES: sclera anicteric, conjunctiva clear. EARS, NOSE, THROAT: Ears normal, nares patent, oropharynx clear without exudates. Moist mucous membranes. NECK: Normal range of motion, supple without lymphadenopathy, JVD, or masses. LUNGS: Breath sounds equal, clear to auscultation bilaterally. No wheezes, and no crackles. No accessory muscle use. HEART: Regular rate and rhythm, normal S1 and S2 without murmur, rub or gallop. ABDOMEN: Soft, nontender, not distended, normoactive bowel sounds. MUSCULOSKELETAL: Normal range of motion at all joints. No bony deformities or tenderness. UPPER EXTREMITIES: 2+ pulses, warm, well-perfused. No cyanosis. No clubbing. Cap refill <2 seconds. No peripheral edema. LOWER EXTREMITIES: 2+ pulses, warm, well-perfused. No calf tenderness. No peripheral edema. NEUROLOGICAL: Non-focal, sensation bilateral LE is equivocal PSYCHIATRIC: Cooperative. Good eye contact. Appropriate mood and affect. SKIN: Warm, dry, normal turgor, no rashes or lesions noted. 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
[2018-09-13] MEDS: diphenhydrAMINE HCL 25 MG CAPSULE (FP) PO SCH (21:12)
[2018-09-13] MEDS: IMMUNE GLOB GAM CAPRYLATE IVPB SCH (21:56)
--- NOTE | 2018-09-14 08:58 | PN ---
Progress Note, Physician - Current Medication List Current Medications: Active Medications Acetaminophen (Tylenol -) 650 mg PO Q6H PRN PRN Reason: PAIN OR FEVER Last Admin: 09/13/18 17:53 Dose: 650 mg Diphenhydramine HCl (Benadryl -) 25 mg PO DAILY@2100 [facility]BY Stop: 09/15/18 21:01 Last Admin: 09/13/18 21:12 Dose: 25 mg Immune Globulin (Gamunex-C) 20 gm in 200 mls @ 38.102 mls/hr IVPB Q24H [facility]; Protocol Stop: 09/16/18 03:15 Ibuprofen (Caldolor Injection -) 600 mg IVPB Q8H PRN PRN Reason: FEVER Last Admin: 09/12/18 10:02 Dose: 600 mg Polyethylene Glycol (Miralax (For Daily Use) -) 17 gm PO DAILY [facility] Last Admin: 09/13/18 10:15 Dose: Not Given - Objective Vital Signs: Vital Signs Temperature 98.2 F 09/14/18 06:00 Pulse Rate 84 09/14/18 07:19 Respiratory Rate 17 09/14/18 07:19 Blood Pressure 119/87 09/14/18 07:19 O2 Sat by Pulse Oximetry (%) 98 09/14/18 07:19 Cardiovascular: Yes: Regular Rate and Rhythm, S1, S2 Respiratory: Yes: Regular, CTA Bilaterally Gastrointestinal: Yes: Normal Bowel Sounds, Soft Neurological: Yes: Numbness, Paresthesia, Unsteady Gait Labs: CBC, BMP 09/13/18 05:30 09/13/18 05:30 INR, PTT INR 1.00 (0.83-1.09) 09/09/18 19:46 Problem List - Problems (1) Guillain Sherman syndrome Assessment/Plan: -LP done revealed cyto-albumin dissociation with protein at 300 range and WBC of 7 -Neurology (Dr. Alas) consulted. Recommendations appreciated. -IVIG q24h started --5 doses -Benadryl prior to IVIG treatment -Neuro checks q4h -Respiratory - FVC q4h -Physical therapy. -lyme ab -id consult Code(s): G61.0 - GUILLAIN-BARRE SYNDROME
[2018-09-14] MEDS: POLYETHYLENE GLYCOL 3350 119 GM BTL PO SCH (11:47)
--- NOTE | 2018-09-14 12:10 | PN ---
Progress Note (short form) - Note Progress Note: Day #3 of IVIG. Reports she already feels better, has markedly less bilat LE numbness and paresthesias, mild ataxia present. Exam: gait- still high steppage, ankle jerks 2+ A/P: Tolerating IVIG, will cont for another 2 days, cont. oral, vigorous hydration. Chad Alas MD
[2018-09-14] MEDS: diphenhydrAMINE HCL 25 MG CAPSULE (FP) PO SCH (21:00)
[2018-09-14] MEDS: IMMUNE GLOBULIN 20 GM/200 ML IVPB SCH (22:00)
[2018-09-15 06:08] LABS: BASO % 0.5 % (0-2.0); HEMATOCRIT 33.7 % (32.4-45.2); HEMOGLOBIN 11.4 GM/dL (10.7-15.3); LYMPH % 25.1 % (8-40); MCH 23.9 pg (25.7-33.7); MCHC 33.8 g/dl (32.0-36.0); MEAN CELL VOLUME 70.9 fl (80-96); MEAN PLT VOLUME 8.2 fl (7.5-11.1); MONO % 8.4 % (3.8-10.2); PLATELET COUNT 222 K/MM3 (134-434); RBC 4.75 M/mm3 (3.60-5.2); RDW 14.8 % (11.6-15.6)
[2018-09-15 06:31] LABS: ALBUMIN 3.4 g/dl (3.4-5.0); ALK PHOS 57 U/L (45-117); ANION GAP 6 MMOL/L (8-16); BILIRUBIN,TOTAL 0.3 mg/dL (0.2-1); BLOOD UREA NITROGEN 11 mg/dL (7-18); CALCIUM 8.3 mg/dL (8.5-10.1); CHLORIDE 105 mmol/L (98-107); CO2 26 mmol/L (21-32); CREATININE 0.5 mg/dL (0.55-1.3); GLUCOSE,RANDOM 82 mg/dL (74-106); MAGNESIUM 2.1 mg/dL (1.8-2.4); PHOSPHOROUS 4.2 mg/dL (2.5-4.9); POTASSIUM 4.3 mmol/L (3.5-5.1); SGOT/AST 17 U/L (15-37); SGPT/ALT 22 U/L (13-61); SODIUM 137 mmol/L (136-145); TOT PROT 8.4 g/dl (6.4-8.2)
--- NOTE | 2018-09-15 09:06 | PN ---
Progress Note, Physician Chief Complaint: AWAKE ALERT FAMILY BEDSIDE FEELING BETTER - Current Medication List Current Medications: Active Medications Acetaminophen (Tylenol -) 650 mg PO Q6H PRN PRN Reason: PAIN OR FEVER Last Admin: 09/13/18 17:53 Dose: 650 mg Diphenhydramine HCl (Benadryl -) 25 mg PO DAILY@2100 [facility]BY Stop: 09/15/18 21:01 Last Admin: 09/14/18 21:00 Dose: 25 mg Immune Globulin (Gamunex-C) 20 gm in 200 mls @ 38.102 mls/hr IVPB Q24H [facility]; Protocol Stop: 09/16/18 03:15 Last Admin: 09/14/18 22:00 Dose: 38.102 mls/hr Ibuprofen (Caldolor Injection -) 600 mg IVPB Q8H PRN PRN Reason: FEVER Last Admin: 09/12/18 10:02 Dose: 600 mg Polyethylene Glycol (Miralax (For Daily Use) -) 17 gm PO DAILY [facility] Last Admin: 09/14/18 11:47 Dose: Not Given - Objective Vital Signs: Vital Signs Temperature 98.4 F 09/15/18 06:00 Pulse Rate 80 09/15/18 06:00 Respiratory Rate 20 09/15/18 06:00 Blood Pressure 110/70 09/15/18 06:00 O2 Sat by Pulse Oximetry (%) 97 09/14/18 19:36 Constitutional: Yes: Mild Distress Eyes: Yes: WNL HENT: Yes: WNL Neck: Yes: WNL Cardiovascular: Yes: WNL Respiratory: Yes: WNL Gastrointestinal: Yes: WNL Genitourinary: Yes: WNL Musculoskeletal: Yes: Muscle Weakness Extremities: Yes: WNL Edema: No Peripheral Pulses WNL: Yes Integumentary: Yes: WNL Wound/Incision: Yes: Clean/Dry Neurological: Yes: Weakness ...Motor Strength: LLE, RLE Psychiatric: Yes: WNL Labs: CBC, BMP 09/15/18 05:30 09/15/18 05:30 INR, PTT INR 1.00 (0.83-1.09) 09/09/18 19:46 Problem List - Problems (1) Ataxia of both legs Code(s): R27.0 - ATAXIA, UNSPECIFIED (2) Back pain Code(s): M54.9 - DORSALGIA, UNSPECIFIED (3) DVT prophylaxis Code(s): PHF9431 - (4) Guillain Sherman syndrome Code(s): 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
--- NOTE | 2018-09-15 11:05 | PN ---
Progress Note, Physician History of Present Illness: doing well, numbness in legs improving, no SOB DAy #4 /5 IVIG - Current Medication List Current Medications: Active Medications Acetaminophen (Tylenol -) 650 mg PO Q6H PRN PRN Reason: PAIN OR FEVER Last Admin: 09/13/18 17:53 Dose: 650 mg Diphenhydramine HCl (Benadryl -) 25 mg PO DAILY@2100 [facility] Stop: 09/15/18 21:01 Last Admin: 09/14/18 21:00 Dose: 25 mg Immune Globulin (Gamunex-C) 20 gm in 200 mls @ 38.102 mls/hr IVPB Q24H [facility]; Protocol Stop: 09/16/18 03:15 Last Admin: 09/14/18 22:00 Dose: 38.102 mls/hr Ibuprofen (Caldolor Injection -) 600 mg IVPB Q8H PRN PRN Reason: FEVER Last Admin: 09/12/18 10:02 Dose: 600 mg Polyethylene Glycol (Miralax (For Daily Use) -) 17 gm PO DAILY [facility] Last Admin: 09/14/18 11:47 Dose: Not Given - Objective Vital Signs: Vital Signs Temperature 98.4 F 09/15/18 06:00 Pulse Rate 80 09/15/18 06:00 Respiratory Rate 20 09/15/18 06:00 Blood Pressure 110/70 09/15/18 06:00 O2 Sat by Pulse Oximetry (%) 97 09/15/18 08:00 Constitutional: Yes: Well Nourished Labs: CBC, BMP 09/15/18 05:30 09/15/18 05:30 INR, PTT INR 1.00 (0.83-1.09) 09/09/18 19:46 Assessment/Plan GBS -- inflammatory demyelinating neuropathy day #4/ IVIG -doing well should be stable for dc in AM, rehab vs home TBD DR OSULLIVAN
--- NOTE | 2018-09-15 11:17 | CON.ID ---
Consult Consult Specialty:: infectious disease Reason for Consultation:: dr preston - History of Present Illness Chief Complaint: bilateral foot tingling and numbness for 2 weeks History of Present Illness: admitted 09/09 and had spinal tap c/w guillan barre- now on IVIG with improvement no recent immunizations no travel works as a [employer] 3 yo with recent coxsackie- about 3 weeks ago- hand foot mouth no diarrhea no sore throat no fevers no pets recent stress- custody of child- lost 10 pounds - History Source History Provided By: Patient, Significant Other - Past Medical History ...LMP: 09/02/18 ...: No - Past Surgical History Past Surgical History: Yes: None - Alcohol/Substance Use Hx Alcohol Use: No - Smoking History Smoking history: Never smoked - Social History Usual Living Arrangement: With Significant Other (and children) ADL: Independent Occupation: [employer] History of Recent Travel: No Home Medications - Allergies Allergies/Adverse Reactions: Allergies Allergy/AdvReac Type Severity Reaction Status Date / Time No Known Allergies Allergy Unverified 09/09/18 19:27 - Home Medications Home Medications: Ambulatory Orders NK [No Known Home Medication] 09/10/18 Family Disease History - Family Disease History Family History: Denies Review of Systems - Review of Systems Constitutional: reports: Unintentional Wgt. Loss. denies: Chills, Diaphoresis, Fever, Lethargy, Loss of Appetite Eyes: reports: No Symptoms HENT: reports: No Symptoms Neck: reports: No Symptoms Cardiovascular: reports: No Symptoms Respiratory: reports: No Symptoms Gastrointestinal: reports: No Symptoms Genitourinary: reports: No Symptoms Integumentary: reports: Rash (itchy rash with tiny dry sports on shoulder and leg- she thinks gnat bites, denies tick bites) Physical Exam Vital Signs: Vital Signs Temperature 98.4 F 09/15/18 06:00 Pulse Rate 80 09/15/18 06:00 Respiratory Rate 20 09/15/18 06:00 Blood Pressure 110/70 09/15/18 06:00 O2 Sat by Pulse Oximetry (%) 97 09/15/18 08:00 Constitutional: Yes: Well Nourished, No Distress, Calm Eyes: Yes: Conjunctiva Clear HENT: Yes: Atraumatic, Normocephalic Neck: Yes: Supple, Trachea Midline Cardiovascular: Yes: Regular Rate and Rhythm Respiratory: Yes: Regular, CTA Bilaterally Gastrointestinal: Yes: Normal Bowel Sounds, Soft ...Rectal Exam: Yes: Deferred Edema: No Peripheral Pulses WNL: Yes Integumentary: Yes: Other (dry tiney lesions on her shoulder and leg- about 4 or 5 tiny scabs) Neurological: Yes: Alert, Oriented Labs: CBC, BMP 09/15/18 05:30 09/15/18 05:30 Problem List - Problems (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
[2018-09-15] MEDS: POLYETHYLENE GLYCOL 3350 119 GM BTL PO SCH (11:25)
--- NOTE | 2018-09-15 13:07 | PN ---
Teaching Attending Note Name of Resident: Chayito Noonan ATTENDING PHYSICIAN STATEMENT I saw and evaluated the patient. I reviewed the resident's note and discussed the case with the resident. I agree with the resident's findings and plan as documented. SUBJECTIVE: Patient seen and examined in the ICU. Awake and alert. Tolerating IVIG therapy. Still feels some sensory impairment in her RLE. Motor function seems normal. VC: 3.o Liters (3.4 on admission). No CP or SOB. Intake & Output 09/13/18 09/14/18 09/14/18 09/15/18 00:59 00:59 23:59 23:59 Intake Total 300 Balance 300 Weight 140 lb 5 oz Last Vital Signs Temp Pulse Resp BP Pulse Ox 98.4 F 80 20 110/70 97 09/15/18 06:00 09/15/18 06:00 09/15/18 06:00 09/15/18 06:00 09/15/18 08:00 Active Medications Acetaminophen (Tylenol -) 650 mg PO Q6H PRN PRN Reason: PAIN OR FEVER Last Admin: 09/13/18 17:53 Dose: 650 mg Diphenhydramine HCl (Benadryl -) 25 mg PO DAILY@2100 [facility] Stop: 09/15/18 21:01 Last Admin: 09/14/18 21:00 Dose: 25 mg Immune Globulin (Gamunex-C) 20 gm in 200 mls @ 38.102 mls/hr IVPB Q24H [facility]; Protocol Stop: 09/16/18 03:15 Last Admin: 09/14/18 22:00 Dose: 38.102 mls/hr Ibuprofen (Caldolor Injection -) 600 mg IVPB Q8H PRN PRN Reason: FEVER Last Admin: 09/12/18 10:02 Dose: 600 mg Polyethylene Glycol (Miralax (For Daily Use) -) 17 gm PO DAILY [facility] Last Admin: 09/15/18 11:25 Dose: Not Given GENERAL: Awake, alert, and fully oriented, in no acute distress. HEAD: Normal with no signs of trauma. EYES: sclera anicteric, conjunctiva clear. EARS, NOSE, THROAT: Ears normal, nares patent, oropharynx clear without exudates. Moist mucous membranes. NECK: Normal range of motion, supple without lymphadenopathy, JVD, or masses. LUNGS: Breath sounds equal, clear to auscultation bilaterally. No wheezes, and no crackles. No accessory muscle use. HEART: Regular rate and rhythm, normal S1 and S2 without murmur, rub or gallop. ABDOMEN: Soft, nontender, not distended, normoactive bowel sounds. MUSCULOSKELETAL: Normal range of motion at all joints. No bony deformities or tenderness. UPPER EXTREMITIES: 2+ pulses, warm, well-perfused. No cyanosis. No clubbing. Cap refill <2 seconds. No peripheral edema. LOWER EXTREMITIES: 2+ pulses, warm, well-perfused. No calf tenderness. No peripheral edema. NEUROLOGICAL: Non-focal, sensation slightly diminished R>L; Motor appears intact PSYCHIATRIC: Cooperative. Good eye contact. Appropriate mood and affect. SKIN: Warm, dry, normal turgor, no rashes or lesions noted. 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
--- NOTE | 2018-09-15 16:16 | PN ---
Physical Exam: SUBJECTIVE: Patient seen and examined at bedside. Patient reports improvement of leg weakness and numbness. But still reports decreased sensation on bilateral LE. Complete 4/5 of IVIG treatment. Patient denies chest pain, SOB, palpitations, abdominal pain, diarrhea, urinary symptoms. OBJECTIVE: Vital Signs Period Temp Pulse Resp BP Sys/Hussein Pulse Ox Last 24 Hr 98.2 F-98.9 F 78-88 16-20 108-117/54-70 97-97 GENERAL: Awake, alert, and fully oriented, in no acute distress. HEAD: Normal with no signs of trauma. EYES: PERRLA, EOMI, sclera anicteric, conjunctiva clear. EARS, NOSE, THROAT: Ears normal, nares patent, oropharynx clear without exudates. Moist mucous membranes. NECK: Normal range of motion, supple without lymphadenopathy, JVD, or masses. LUNGS: Breath sounds equal, clear to auscultation bilaterally. No wheezes, and no crackles. No accessory muscle use. HEART: Regular rate and rhythm, normal S1 and S2 without murmur, rub or gallop. ABDOMEN: Soft, nontender, not distended, normoactive bowel sounds. MUSCULOSKELETAL: Normal range of motion at all joints. No bony deformities or tenderness. UPPER EXTREMITIES: 2+ pulses, warm, well-perfused. No cyanosis. No clubbing. Cap refill <2 seconds. No peripheral edema. LOWER EXTREMITIES: 2+ pulses, warm, well-perfused. No calf tenderness. No peripheral edema. NEUROLOGICAL: Cranial nerves II-XII intact. Normal speech. High steppage gait. B/L LE: sensation diminished R>L; RLE: motor 5/5 on hip/knee flexion/extension, 5/5 on dorsiflexion and plantar flexion; LLE: motor 5/5 on hip/knee flexion/ extension and 5/5 on dorsiflexion and plantar flexion. DTRs +2 PSYCHIATRIC: Cooperative. Good eye contact. Appropriate mood and affect. SKIN: Warm, dry, normal turgor, no rashes or lesions noted. Laboratory Results - last 24 hr 09/15/18 09/15/18 05:30 05:30 WBC 5.0 RBC 4.75 Hgb 11.4 Hct 33.7 MCV 70.9 L MCH 23.9 L MCHC 33.8 RDW 14.8 Plt Count 222 MPV 8.2 Absolute Neuts (auto) 3.1 Neutrophils % 62.0 D Lymphocytes % 25.1 D Monocytes % 8.4 Eosinophils % 4.0 Basophils % 0.5 Nucleated RBC % 0 Sodium 137 Potassium 4.3 Chloride 105 Carbon Dioxide 26 Anion Gap 6 L BUN 11 Creatinine 0.5 L Creat Clearance w eGFR > 60 Random Glucose 82 Calcium 8.3 L Phosphorus 4.2 Magnesium 2.1 Total Bilirubin 0.3 AST 17 ALT 22 Alkaline Phosphatase 57 Total Protein 8.4 H Albumin 3.4 Active Medications Generic Name Dose Route Start Last Admin Trade Name Danteq PRN Reason Stop Dose Admin Acetaminophen 650 mg 09/11/18 05:10 09/13/18 17:53 Tylenol - PO 650 mg Q6H PRN Administration PAIN OR FEVER Diphenhydramine HCl 25 mg 09/12/18 21:00 09/14/18 21:00 Benadryl - PO 09/15/18 21:01 25 mg DAILY@2100 RUBY Administration Immune Globulin 20 gm in 200 mls @ 38.102 mls/hr 09/14/18 22:00 09/14/18 22: 00 Gamunex-C IVPB 09/16/18 03:15 38.102 mls/hr Q24H RUBY Administration Protocol 1 MG/KG/MIN Ibuprofen 600 mg 09/12/18 09:00 09/12/18 10:02 Caldolor Injection - IVPB 600 mg Q8H PRN Administration FEVER Polyethylene Glycol 17 gm 09/12/18 10:00 09/15/18 11:25 Miralax (For Daily Use) - PO Not Given DAILY RUBY ASSESSMENT/PLAN: Patient is a 28 year old female with no past medical history presenting with worsening bilateral leg weakness, numbness and tingling since 2 weeks ago. LP done yesterday revealed cyto-albumin dissociation with protein at 300 range and WBC of 7. 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 Transferred to ICU for closer monitoring. 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 Alas) consulted. Recommendations appreciated. -IVIG q24h started 4/5 doses -Benadryl prior to IVIG treatment -IgA immunoglobulin ordered. -H. pylori IgM, IgA, IgG Ab -Neuro checks q4h -Respiratory - FVC q4h - stable at 3L -Physical therapy. -Pulmonology consulted. #FEN -IV D5-1/2NS @75ml/hr -electrolytes wnl, routine bmp monitoring -regular diet #Prophylaxis -SCDs, both legs -Early ambulation #[facility] Visit type - Emergency Visit Emergency Visit: Yes ED Registration Date: 09/09/18 Care time: The patient presented to the Emergency Department on the above date and was hospitalized for further evaluation of their emergent condition. - New Patient This patient is new to me today: Yes Date on this admission: 09/15/18 - Critical Care Critical Care patient: Yes Total Critical Care Time (in minutes): 40 Critical Care Statement: The care of this patient involved high complexity decision making to prevent further life threatening deterioration of the patient 's condition and/or to evaluate & treat vital organ system(s) failure or risk of failure.
[2018-09-15] MEDS ORDERED: IBUPROFEN 800 MG/8 ML IJ IVPB PRN (17:00)
[2018-09-15] MEDS ORDERED: KETOROLAC TROMETHAMINE 30 MG/1 ML VIAL IVPUSH ONE (17:00)
[2018-09-15] MEDS ORDERED: ACETAMINOPHEN 325 MG TABLET (FP) PO PRN (17:00)
[2018-09-15] MEDS ORDERED: diphenhydrAMINE HCL 25 MG CAPSULE (FP) PO SCH (21:00)
[2018-09-15] MEDS: IMMUNE GLOBULIN 20 GM/200 ML IVPB SCH (22:00)
[2018-09-16 06:05] VITALS: TEMP 98.3
[2018-09-16 08:14] LABS: HEMATOCRIT 35.4 % (32.4-45.2); HEMOGLOBIN 11.2 GM/dL (10.7-15.3); MCH 22.7 pg (25.7-33.7); MCHC 31.6 g/dl (32.0-36.0); MEAN PLT VOLUME 8.3 fl (7.5-11.1); PLATELET COUNT 221 K/MM3 (134-434); RBC 4.91 M/mm3 (3.60-5.2); RDW 14.5 % (11.6-15.6); WHITE BLOOD COUNT 4.9 K/mm3 (4.0-10.0)
--- NOTE | 2018-09-16 08:47 | DS ---
Physical Examination Vital Signs: Vital Signs Temperature 98.3 F 09/16/18 06:00 Pulse Rate 87 09/16/18 06:00 Respiratory Rate 18 09/16/18 06:00 Blood Pressure 111/61 09/16/18 06:00 O2 Sat by Pulse Oximetry (%) 97 09/15/18 20:38 Cardiovascular: Yes: Regular Rate and Rhythm Respiratory: Yes: Regular, CTA Bilaterally Gastrointestinal: Yes: Normal Bowel Sounds, Soft. No: Tenderness Neurological: Yes: Alert, Oriented, Unsteady Gait (IMPROVING) Labs: CBC, BMP 09/16/18 07:10 Discharge Summary Reason For Visit: GUILLAIN-BARRE SYNDROME Current Active Problems Ataxia of both legs (Acute) Back pain (Acute) DVT prophylaxis (Acute) Guillain Sherman syndrome (Acute) Lower extremity weakness (Acute) Hospital Course: admitted 09/09 and had spinal tap c/w guillan barre- now on IVIG with improvement no recent immunizations no travel works as a [employer] 3 yo with recent coxsackie- about 3 weeks ago- hand foot mouth no diarrhea no sore throat no fevers no pets recent stress- custody of child- lost 10 pounds - History Source History Provided By: Patient, Significant Other - Past Medical History ...LMP: 09/02/18 ...: No - Past Surgical History Past Surgical History: Yes: None - Alcohol/Substance Use Hx Alcohol Use: No - Smoking History Smoking history: Never smoked - Social History Usual Living Arrangement: With Significant Other (and children) ADL: Independent Occupation: [employer] History of Recent Travel: No - Problems (1) Guillain Sherman syndrome Assessment/Plan: -LP done revealed cyto-albumin dissociation with protein at 300 range and WBC of 7 -Neurology (Dr. Alas) consulted. Recommendations appreciated. -IVIG q24h COMPLETED -5 doses -Physical therapy. 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
[2018-09-16 08:57] LABS: ANION GAP 7 MMOL/L (8-16); BLOOD UREA NITROGEN 9 mg/dL (7-18); CALCIUM 8.7 mg/dL (8.5-10.1); CHLORIDE 105 mmol/L (98-107); CO2 24 mmol/L (21-32); CREATININE 0.5 mg/dL (0.55-1.3); GLUCOSE,RANDOM 86 mg/dL (74-106); MAGNESIUM 2.2 mg/dL (1.8-2.4); PHOSPHOROUS 3.5 mg/dL (2.5-4.9); POTASSIUM 4.4 mmol/L (3.5-5.1); SODIUM 136 mmol/L (136-145)
[2018-09-16] MEDS ORDERED: POLYETHYLENE GLYCOL 3350 119 GM BTL PO SCH (10:00)
--- NOTE | 2018-09-16 10:13 | PN ---
Progress Note (short form) - Note Progress Note: PULMONARY Denies shortness of breath, cough or chest discomfort. No fevers recorded. Still some right leg weakness. Wants to go home. Vital Signs Period Temp Pulse Resp BP Sys/Hussein Pulse Ox Last 24 Hr 98.2 F-98.4 F 75-88 18-19 111-136/61-78 97 Gen: NAD at rest Heart: RRR Lung: decreased breath sounds at the bases Abd: soft, nontender Ext: no edema CBC, BMP 09/16/18 07:10 09/16/18 07:10 Active Medications Acetaminophen (Tylenol -) 650 mg PO Q6H PRN PRN Reason: PAIN OR FEVER Ibuprofen (Caldolor Injection -) 600 mg IVPB Q8H PRN PRN Reason: FEVER Polyethylene Glycol (Miralax (For Daily Use) -) 17 gm PO DAILY RUBY A/P Guillain [place] Syndrome s/p IVIG treatment - DVT prophylaxis - d/c planning
--- NOTE | 2018-09-16 10:56 | PN ---
Progress Note, Physician History of Present Illness: doing well, day 5 IVIG no new issues - Current Medication List Current Medications: Active Medications Acetaminophen (Tylenol -) 650 mg PO Q6H PRN PRN Reason: PAIN OR FEVER Ibuprofen (Caldolor Injection -) 600 mg IVPB Q8H PRN PRN Reason: FEVER Polyethylene Glycol (Miralax (For Daily Use) -) 17 gm PO DAILY RUBY - Objective Vital Signs: Vital Signs Temperature 98.3 F 09/16/18 06:00 Pulse Rate 87 09/16/18 06:00 Respiratory Rate 18 09/16/18 06:00 Blood Pressure 111/61 09/16/18 06:00 O2 Sat by Pulse Oximetry (%) 97 09/15/18 20:38 Labs: CBC, BMP 09/16/18 07:10 09/16/18 07:10 INR, PTT INR 1.00 (0.83-1.09) 09/09/18 19:46 Problem List - Problems (1) Guillain [place] syndrome Code(s): 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
[2018-09-16 11:36] VITALS: BP 131/73; PULSE 93
== END 2018-09-16 15:57 | disposition home health service (06) | DRG 49 ==
LOC: JER 19:00 → JERBED 21:38 → J8W 09-10 07:08 → JICU 09-11 18:40 → J6S 09-15 18:38
PROVIDERS: ADMIT Internal Medicine; ATTEND Family Medicine
PROC: 009U3ZZ Drainage of Spinal Canal, Percutaneous Approach (ICD-10-PCS; principal; 2018-09-10)
PROC: B01BZZZ Fluoroscopy of Spinal Cord (ICD-10-PCS; 2018-09-10)
DX: G61.0 Guillain-Barre syndrome (principal); R29.898 Other symptoms and signs involving the musculoskeletal system; R27.0 Ataxia, unspecified; M54.9 Dorsalgia, unspecified; G37.3 Acute transverse myelitis in demyelinating disease of central nervous system
CPT/HCPCS: 36415; 62272; 76000-TC-FY; 76098-TC-FY; 80048; 80053; 81003; 81015; 82550; 82784; 82945; 83036; 83735; 84100; 84157; 84443; 84703; 85025; 85027; 85610; 85651; 86618; 86677; 87086; 87389; 87899; 93005; 93010; 97116-GP; 97162-GP; 99284-25; J1561